=== PATIENT | female | born 1960 | race Caucasian/White ===

== ENCOUNTER → 2018-05-25 10:14 | Outpatient (CLI) | payer MEDICARE, MEDICAID | END | disposition home or self-care (01) | LOC: D.CT 10:14 | DX: K86.9 Disease of pancreas, unspecified (principal) ==

== ENCOUNTER 2018-07-29 08:00 | Outpatient (CLI) | payer MEDICARE, MEDICAID | END 2018-07-29 09:00 | disposition home or self-care (01) | LOC: D.MAMMO 08:00 | DX: Z12.31 Encounter for screening mammogram for malignant neoplasm of breast (principal) ==

== ENCOUNTER 2018-11-23 11:50 | Inpatient (IN) | payer MEDICARE, MEDICAID ==
[2018-11-23 13:01] VITALS: BP 148/52
[2018-11-23] MEDS ORDERED: BELSOMRA15 MG PO (13:07)
[2018-11-23] MEDS ORDERED: LIPITOR80 MG PO (13:08)
[2018-11-23] MEDS ORDERED: TRICOR145 MG PO (13:08)
[2018-11-23] MEDS ORDERED: CYMBALTA60 MG PO (13:09)
[2018-11-23] MEDS ORDERED: AMITRIPTYLINE H50 MG PO (13:09)
[2018-11-23] MEDS ORDERED: TOPROL XL25 MG PO (13:10)
[2018-11-23] MEDS ORDERED: BRILINTA90 MG PO (13:10)
[2018-11-23] MEDS ORDERED: OMEPRAZOLE20 M1 PO (13:11)
[2018-11-23] MEDS ORDERED: LYRICA300 MG PO (13:11)
[2018-11-23] MEDS ORDERED: BAYER CHEWABLE81 MG PO (13:12)
[2018-11-23] MEDS ORDERED: NITROSTAT0.4 MG SL (13:12)
[2018-11-23 13:13] LABS: BASOPHILS 0.5 % (0-2); EOSINOPHILS 3.1 % (0-7); HEMATOCRIT 41.3 % (36.0-48.0); HEMOGLOBIN 13.8 g/dL (12-16); IMMATURE GRANULOCYTES 0.3 % (0-5); LYMPHOCYTES 25.1 % (15-50); MCH 28.9 pg (26.0-34.0); MCHC 33.4 g/dL (31.0-37.0); MCV 86.6 fL (80.0-100.0); MEAN PLATELET VOLUME 11.6 fL (7.4-10.4); MONOCYTES 7.6 % (2-11); NEUTROPHILS 63.4 % (40-80); PLATELET COUNT 244 10x3/uL (130-400); RBC 4.77 10x6/uL (4.00-5.40); RDW 16.5 % (11.5-14.5); WBC 9.8 10x3/uL (4.8-10.8)
[2018-11-23] MEDS ORDERED: TRESIBA FL100 UNIT/1 SC (13:13)
[2018-11-23] MEDS ORDERED: BYDUREON P2 MG/0.65 SC (13:14)
[2018-11-23] MEDS ORDERED: HUMALOG 30100 UNITS/ SC (13:14)
[2018-11-23 13:17] LABS: ALBUMIN 3.3 g/dL (3.4-5.0); ALKALINE PHOSPHATASE 142 U/L (46-116); ALT (SGPT) 23 U/L (10-68); APTT 25.2 SECONDS (22.8-39.4); BILIRUBIN - TOTAL 0.29 mg/dL (0.2-1.3); CALC OSMOLALITY 286 mosm/kg (275-300); CALCIUM 8.8 mg/dL (8.5-10.1); CARBON DIOXIDE 30.9 mmol/L (21.0-32.0); CHLORIDE - SERUM 99 mmol/L (98-107); CREATININE - SERUM 0.6 mg/dL (0.6-1.3); GLUCOSE 238 mg/dL (74-106); INR 0.96 (0.85-1.17); POTASSIUM - SERUM 3.7 mmol/L (3.5-5.1); PROTIME 12.3 SECONDS (11.6-15.0); SODIUM 139 mmol/L (136-145); UREA NITROGEN 16 mg/dL (7-18); eGFR NON AFRICAN AMERICAN > 90 mL/min (90-120)
[2018-11-23 13:29] LABS: CKMB 1.3 U/L (0.0-3.6); CREATINE KINASE 56 UL (21-215); MAGNESIUM - SERUM 1.7 mg/dL (1.8-2.4); PRO BNP 2313 pg/mL (0-125); TROPONIN-I 0.019 ng/mL (0.000-0.060)
[2018-11-23 14:01] VITALS: BP 125/65
[2018-11-23 18:07] VITALS: BP 146/91
[2018-11-23 18:19] VITALS: BP 112/61; BMI 39.6
[2018-11-23 22:28] VITALS: BP 126/57
[2018-11-24 05:02] VITALS: BP 134/60
[2018-11-24 06:47] LABS: BASOPHILS 0.5 % (0-2); EOSINOPHILS 1.9 % (0-7); HEMATOCRIT 40.1 % (36.0-48.0); IMMATURE GRANULOCYTES 0.4 % (0-5); LYMPHOCYTES 15.2 % (15-50); MCH 28.4 pg (26.0-34.0); MCHC 32.4 g/dL (31.0-37.0); MCV 87.6 fL (80.0-100.0); MEAN PLATELET VOLUME 11.6 fL (7.4-10.4); MONOCYTES 7.2 % (2-11); NEUTROPHILS 74.8 % (40-80); PLATELET COUNT 233 10x3/uL (130-400); RBC 4.58 10x6/uL (4.00-5.40); RDW 16.4 % (11.5-14.5); WBC 10.3 10x3/uL (4.8-10.8)
[2018-11-24 07:16] LABS: ALKALINE PHOSPHATASE 133 U/L (46-116); ALT (SGPT) 22 U/L (10-68); BILIRUBIN - TOTAL 0.29 mg/dL (0.2-1.3); CALC OSMOLALITY 287 mosm/kg (275-300); CALCIUM 8.9 mg/dL (8.5-10.1); CARBON DIOXIDE 33.9 mmol/L (21.0-32.0); CHLORIDE - SERUM 99 mmol/L (98-107); CREATININE - SERUM 0.7 mg/dL (0.6-1.3); GLUCOSE 259 mg/dL (74-106); MAGNESIUM - SERUM 1.6 mg/dL (1.8-2.4); PROTEIN - SERUM 7.4 g/dL (6.4-8.2); SODIUM 139 mmol/L (136-145); UREA NITROGEN 14 mg/dL (7-18); eGFR NON AFRICAN AMERICAN > 90 mL/min (90-120)
[2018-11-24 08:45] VITALS: BP 155/63
[2018-11-24 12:45] VITALS: BP 145/54
[2018-11-24 14:15] VITALS: BMI 39.6
[2018-11-24 17:06] VITALS: BP 145/70
[2018-11-24 20:52] VITALS: BP 137/60
[2018-11-25 01:02] VITALS: BP 154/64
[2018-11-25 04:04] LABS: BASOPHILS 0.1 % (0-2); EOSINOPHILS 0 % (0-7); HEMATOCRIT 42.6 % (36.0-48.0); HEMOGLOBIN 14.5 g/dL (12-16); IMMATURE GRANULOCYTES 0.7 % (0-5); LYMPHOCYTES 9.1 % (15-50); MCH 29.2 pg (26.0-34.0); MCV 85.7 fL (80.0-100.0); MEAN PLATELET VOLUME 11.3 fL (7.4-10.4); NEUTROPHILS 87.1 % (40-80); PLATELET COUNT 250 10x3/uL (130-400); RBC 4.97 10x6/uL (4.00-5.40); WBC 9.1 10x3/uL (4.8-10.8)
[2018-11-25 04:42] LABS: ALBUMIN 3.1 g/dL (3.4-5.0); ANION GAP 10.4 mmol/L (8-16); BILIRUBIN - TOTAL 0.46 mg/dL (0.2-1.3); CALCIUM 9.6 mg/dL (8.5-10.1); CARBON DIOXIDE 32.7 mmol/L (21.0-32.0); POTASSIUM - SERUM 4.1 mmol/L (3.5-5.1); PROTEIN - SERUM 8.1 g/dL (6.4-8.2)
[2018-11-25 04:54] VITALS: BP 118/72
[2018-11-25 07:59] VITALS: BP 133/61
[2018-11-25 11:24] VITALS: BP 122/45
--- NOTE | 2018-11-25 14:49 | MORECARE ---
CASE MANAGEMENT DISCHARGE SUMMARY PATIENT: STEPHIE TERRY UNIT: [id number] ADM DATE: 11/23/18 AGE: 58 : 62 SEX: F ROOM/BED: D.2216 AUTHOR: LANRE,DOC PHYSICIAN: REFERRING PHYSICIAN: DAYNA DAVIS MD DATE OF SERVICE: 11/25/18 Discharge Plan Patient Name: STEPHIE TERRY Facility: [facility]:[place] : 1960 Planned Disposition: Home or Self Care Anticipated Discharge Date: Discharge Date: Expected LOS: Initial Reviewer: [email or web address] Initial Review Date: 11/23/2018 Generated: 11/25/18 3:48 pm DCPIA - Discharge Planning Initial Assessment Updated by [email or web address]: Lilli Guerrier on 11/25/18 2:42 pm * Is the patient Alert and Oriented? Yes * How many steps to enter\exit or inside your home? * PCP JEFFREY * [facility] * Preadmission Environment Home with Family * ADLs Independent * Equipment Cane Nebulizer Rolling Walker * List name and contact numbers for known caregivers / representatives who currently or will assist patient after discharge: MIREYA (BROTHER) * Verbal permission to speak to the caregivers and representatives has been obtained from the patient. N/A * Community resources currently utilized None * Additional services required to return to the preadmission environment? No * Can the patient safely return to the preadmission environment? Yes * Has this patient been hospitalized within the prior 30 days at any hospital? No Coverage Notice Reviewer: [id number] Jabari Guerrier Notice Issued Date-Time: 11/25/2018 14:30 Notice Type: IM Discharge Notice Notice Delivered To: Patient Relationship to Patient: Registered Nurse Post Partum Name: Delivery Method: - Viki Days: Prior Verbal Notification: Recipient Understood Notice: Yes Recipient Signature: Yes Med Rec Note Co-signed by Attending: Coverage Notice Comment: Reviewer: [id number] Jabari Guerrier Notice Issued Date-Time: 11/25/2018 14:30 Notice Type: Patient Choice Letter Notice Delivered To: Patient Relationship to Patient: Registered Nurse Post Partum Name: Delivery Method: HAND - Hand Delivered Viki Days: Prior Verbal Notification: Recipient Understood Notice: Yes Recipient Signature: Yes Med Rec Note Co-signed by Attending: Coverage Notice Comment: DEX IVY Patient Name: STEPHIE TERRY Page [id number] at 1449 All edits/amendments must be made on the electronic document DICTATION DATE: 11/25/181447 SHIP PILOT: YAS 11/25/181447 RPT#: [id number] DC DATE: STATUS: ADM IN [facility] [address] [place] [address] END OF REPORT
--- NOTE | 2018-11-25 14:58 | MORECARE ---
CASE MANAGEMENT DISCHARGE SUMMARY PATIENT: STEPHIE TERRY UNIT: [id number] ADM DATE: 11/23/18 AGE: 58 : 62 SEX: F ROOM/BED: D.2216 AUTHOR: LANRE,DOC PHYSICIAN: REFERRING PHYSICIAN: DAYNA DAVIS MD DATE OF SERVICE: 11/25/18 Discharge Plan Patient Name: STEPHIE TERRY Facility: [facility]:[place] : 1960 Planned Disposition: Home or Self Care Anticipated Discharge Date: Discharge Date: Expected LOS: Initial Reviewer: [email or web address] Initial Review Date: 11/23/2018 Generated: 11/25/18 3:57 pm Comments DCP- Discharge Planning Updated by [email or web address]: Lilli Guerrier on 11/25/18 1:[address] Patient Name: STEPHIE TERRY Admission Status: ER Accout number: [id number] Admission Date: 11-23-2018 : 1960 Admission Diagnosis: Attending: DAYNA DAVIS Current LOS: 2 Anticipated DC Date: Planned Disposition: Home or Self Care Primary Insurance: [facility] MEDICARE SOLUTIONS Discharge Planning Comments: CM met with patient to complete initial dc planning assessment. CM educated patient on the CM role and verbal consent given by patient to complete assessment. Patient lives at home with his brother where she is independent with her care. At discharge patient plans to return home and feels this is a safe discharge. Mireya (brother) will be her driver guide home. CM discussed availability of home health, rehab services, and medical equipment. Patient has a cane, walker, and nebulizer ([facility]) She qualifies for a portable O2, will get from [facility]. Patient denied any other known discharge needs at this time. IMM served and explained. CM will continue to follow and will assist as needed with dc plans/needs. Director Nursery School: Lilli Guerrier DCPIA - Discharge Planning Initial Assessment Updated by [email or web address]: Lilli Guerrier on 11/25/18 2:42 pm * Is the patient Alert and Oriented? Yes * How many steps to enter\exit or inside your home? * PCP JEFFREY * [facility] * Preadmission Environment Home with Family * ADLs Independent * Equipment Cane Nebulizer Rolling Walker * List name and contact numbers for known caregivers / representatives who currently or will assist patient after discharge: MIREYA (BROTHER) * Verbal permission to speak to the caregivers and representatives has been obtained from the patient. N/A * Community resources currently utilized None * Additional services required to return to the preadmission environment? No * Can the patient safely return to the preadmission environment? Yes * Has this patient been hospitalized within the prior 30 days at any hospital? No External Providers External Provider: Kelly Joseph Contact Date: Service Request Date: Service Type: Resolution: Reviewer: Comments: Coverage Notice Reviewer: [id number] Jabari Guerrier Notice Issued Date-Time: 11/25/2018 14:30 Notice Type: IM Discharge Notice Notice Delivered To: Patient Relationship to Patient: Carton Stapler Name: Delivery Method: - Viki Days: Prior Verbal Notification: Recipient Understood Notice: Yes Recipient Signature: Yes Med Rec Note Co-signed by Attending: Coverage Notice Comment: Reviewer: [id number] Guerrier Notice Issued Date-Time: 11/25/2018 14:30 Notice Type: Patient Choice Letter Notice Delivered To: Patient Relationship to Patient: Carton Stapler Name: Delivery Method: HAND - Hand Delivered Viki Days: Prior Verbal Notification: Recipient Understood Notice: Yes Recipient Signature: Yes Med Rec Note Co-signed by Attending: Coverage Notice Comment: DEX IVY Last DP export: 11/25/18 1:49 p Patient Name: STEPHIE TERRY Page [id number] at 1458 All edits/amendments must be made on the electronic document DICTATION DATE: 11/25/181456 TOE POUNDER: YAS 11/25/181456 RPT#: [id number] DC DATE: STATUS: ADM IN [facility] [address] [place] [address] END OF REPORT
--- NOTE | 2018-11-25 15:07 | MORECARE ---
CASE MANAGEMENT DISCHARGE SUMMARY PATIENT: STEPHIE TERRY UNIT: [id number] ADM DATE: 11/23/18 AGE: 58 : 62 SEX: F ROOM/BED: D.2216 AUTHOR: ZEYAD DE DIOS PHYSICIAN: REFERRING PHYSICIAN: DAYNA DAVIS MD DATE OF SERVICE: 11/25/18 Discharge Plan Patient Name: STEPHIE TERRY Facility: [facility]:[place] : 1960 Planned Disposition: Home or Self Care Anticipated Discharge Date: Discharge Date: Expected LOS: Initial Reviewer: [email or web address] Initial Review Date: 11/23/2018 Generated: 11/25/18 4:06 pm Comments DCP- Discharge Planning Updated by [id number]: Lilli Guerrier on 11/25/18 2:[address] ORDER AND CLINICAL INFORMARTION SENT TO [facility] [place], I SPOKE WITH [facility]RA SHE WILL DELIVER PORTABLE TO THE HOSPITAL AND WILL SET UP HOME O2 WHEN THE PATIENT IS DISCHARGED. I ANTICIPATE THE PATIENT TO BE DISCHARGED TOMORROW DCP- Discharge Planning Updated by [email or web address]: Lilli Guerrier on 11/25/18 1:[address] Patient Name: STEPHIE TERRY Admission Status: ER Accout number: [id number] Admission Date: 11-23-2018 : 1960 Admission Diagnosis: Attending: DAYNA DAVIS Current LOS: 2 Anticipated DC Date: Planned Disposition: Home or Self Care Primary Insurance: [facility] MEDICARE SOLUTIONS Discharge Planning Comments: CM met with patient to complete initial dc planning assessment. CM educated patient on the CM role and verbal consent given by patient to complete assessment. Patient lives at home with his brother where she is independent with her care. At discharge patient plans to return home and feels this is a safe discharge. Mireya (brother) will be her carrier driver home. CM discussed availability of home health, rehab services, and medical equipment. Patient has a cane, walker, and nebulizer ([facility]) She qualifies for a portable O2, will get from [facility]. Patient denied any other known discharge needs at this time. IMM served and explained. CM will continue to follow and will assist as needed with dc plans/needs. Stave And Bolt Equalizer: Lilli Guerrier DCPIA - Discharge Planning Initial Assessment Updated by [email or web address]: Lilli Guerrier on 11/25/18 2:42 pm * Is the patient Alert and Oriented? Yes * How many steps to enter\exit or inside your home? * PCP JEFFREY * [facility] * Preadmission Environment Home with Family * ADLs Independent * Equipment Cane Nebulizer Rolling Walker * List name and contact numbers for known caregivers / representatives who currently or will assist patient after discharge: MIREYA (BROTHER) * Verbal permission to speak to the caregivers and representatives has been obtained from the patient. N/A * Community resources currently utilized None * Additional services required to return to the preadmission environment? No * Can the patient safely return to the preadmission environment? Yes * Has this patient been hospitalized within the prior 30 days at any hospital? No Coverage Notice Reviewer: [id number] Jabari Guerrier Notice Issued Date-Time: 11/25/2018 14:30 Notice Type: IM Discharge Notice Notice Delivered To: Patient Relationship to Patient: Sales Route Driver Helper Name: Delivery Method: - Viki Days: Prior Verbal Notification: Recipient Understood Notice: Yes Recipient Signature: Yes Med Rec Note Co-signed by Attending: Coverage Notice Comment: Reviewer: [id number] Jabari Guerrier Notice Issued Date-Time: 11/25/2018 14:30 Notice Type: Patient Choice Letter Notice Delivered To: Patient Relationship to Patient: Sales Route Driver Helper Name: Delivery Method: HAND - Hand Delivered Viki Days: Prior Verbal Notification: Recipient Understood Notice: Yes Recipient Signature: Yes Med Rec Note Co-signed by Attending: Coverage Notice Comment: DEX Mejia DP export: 11/25/18 1:58 p Patient Name: STEPHIE TERRY Page [id number] at 1507 All edits/amendments must be made on the electronic document DICTATION DATE: 11/25/18 1506 ELECTION SUPERVISOR: YAS 11/25/18 1506 RPT#: [id number] DC DATE: STATUS: ADM IN [facility] [address] [place] [address] END OF REPORT
--- NOTE | 2018-11-25 16:09 | MORECARE ---
CASE MANAGEMENT DISCHARGE SUMMARY PATIENT: STEPHIE TERRY UNIT: [id number] ADM DATE: 11/23/18 AGE: 58 : 62 SEX: F ROOM/BED: D.2216 AUTHOR: LANREDOC PHYSICIAN: REFERRING PHYSICIAN: DAYNA DAVIS MD DATE OF SERVICE: 11/25/18 Discharge Plan Patient Name: STEPHIE TERRY Facility: [facility]:[place] : 1960 Planned Disposition: Home or Self Care Anticipated Discharge Date: Discharge Date: Expected LOS: Initial Reviewer: [email or web address] Initial Review Date: 11/23/2018 Generated: 11/25/18 5:09 pm Comments DCP- Discharge Planning Updated by [email or web address]: Lilli Guerrier on 11/25/18 3:[address] [facility] WITH [facility] HAS DELIVERED THE PORTABLE O2 TO THE PATIENT'S ROOM & WILL DELIVER THE HOME O2 TO THE HOUSE WHEN DISCHARGED. [facility] ENGINEER STEAM HERE ALSO SPEAKING TO THE PATIENT DCP- Discharge Planning Updated by [id number]: Lilli Guerrier on 11/25/18 2:[address] ORDER AND CLINICAL INFORMARTION SENT TO [facility], I SPOKE WITH DEDRA SHE WILL DELIVER PORTABLE TO THE HOSPITAL AND WILL SET UP HOME O2 WHEN THE PATIENT IS DISCHARGED. I ANTICIPATE THE PATIENT TO BE DISCHARGED TOMORROW DCP- Discharge Planning Updated by : Lilli Guerrier on 11/25/18 1:[address] Patient Name: STEPHIE TERRY Admission Status: ER Accout number: [id number] Admission Date: 11-23-2018 : 1960 Admission Diagnosis: Attending: DAYNA DAVIS Current LOS: 2 Anticipated DC Date: Planned Disposition: Home or Self Care Primary Insurance: [facility] MEDICARE SOLUTIONS Discharge Planning Comments: CM met with patient to complete initial dc planning assessment. CM educated patient on the CM role and verbal consent given by patient to complete assessment. Patient lives at home with his brother where she is independent with her care. At discharge patient plans to return home and feels this is a safe discharge. Mireya (brother) will be her courier driver home. CM discussed availability of home health, rehab services, and medical equipment. Patient has a cane, walker, and nebulizer ([facility]) She qualifies for a portable O2, will get from [facility]. Patient denied any other known discharge needs at this time. IMM served and explained. CM will continue to follow and will assist as needed with dc plans/needs. Bilingual Loan Processor: Lilli Guerrier DCPIA - Discharge Planning Initial Assessment Updated by [email or web address]: Lilli Guerrier on 11/25/18 2:42 pm * Is the patient Alert and Oriented? Yes * How many steps to enter\exit or inside your home? * PCP JEFFREY * [facility] * Preadmission Environment Home with Family * ADLs Independent * Equipment Cane Nebulizer Rolling Walker * List name and contact numbers for known caregivers / representatives who currently or will assist patient after discharge: MIREYA (BROTHER) * Verbal permission to speak to the caregivers and representatives has been obtained from the patient. N/A * Community resources currently utilized None * Additional services required to return to the preadmission environment? No * Can the patient safely return to the preadmission environment? Yes * Has this patient been hospitalized within the prior 30 days at any hospital? No Coverage Notice Reviewer: [email or web address] Jabari Guerrier Notice Issued Date-Time: 11/25/2018 14:30 Notice Type: IM Discharge Notice Notice Delivered To: Patient Relationship to Patient: Pastry Chef Name: Delivery Method: - Viki Days: Prior Verbal Notification: Recipient Understood Notice: Yes Recipient Signature: Yes Med Rec Note Co-signed by Attending: Coverage Notice Comment: Reviewer: [id number] Jabari Guerrier Notice Issued Date-Time: 11/25/2018 14:30 Notice Type: Patient Choice Letter Notice Delivered To: Patient Relationship to Patient: Pastry Chef Name: Delivery Method: HAND - Hand Delivered Viki Days: Prior Verbal Notification: Recipient Understood Notice: Yes Recipient Signature: Yes Med Rec Note Co-signed by Attending: Coverage Notice Comment: DEX IVY Last DP export: 11/25/18 2:07 p Patient Name: STEPHIE TERRY Page [id number] at 1609 All edits/amendments must be made on the electronic document DICTATION DATE: 11/25/181607 BAGGAGE CHECKER: YAS 11/25/181607 RPT#: [id number] DC DATE: STATUS: ADM IN [facility] [address] [place] [address] END OF REPORT
[2018-11-25 16:17] VITALS: BP 124/48
[2018-11-25 20:00] VITALS: BP 116/43
[2018-11-25] MEDS ORDERED: LANTUS INSULIN10 ML SC (23:27)
[2018-11-26] VITALS: BP 119/51
[2018-11-26 03:00] VITALS: BP 117/68
[2018-11-26 06:13] LABS: BASOPHILS 0.1 % (0-2); EOSINOPHILS 0.1 % (0-7); HEMATOCRIT 40.2 % (36.0-48.0); HEMOGLOBIN 13.5 g/dL (12-16); IMMATURE GRANULOCYTES 0.5 % (0-5); LYMPHOCYTES 8.1 % (15-50); MCH 28.8 pg (26.0-34.0); MCHC 33.6 g/dL (31.0-37.0); MCV 85.9 fL (80.0-100.0); MEAN PLATELET VOLUME 11.6 fL (7.4-10.4); MONOCYTES 5.1 % (2-11); NEUTROPHILS 86.1 % (40-80); PLATELET COUNT 260 10x3/uL (130-400); RBC 4.68 10x6/uL (4.00-5.40); RDW 16.1 % (11.5-14.5)
[2018-11-26 06:16] LABS: ALKALINE PHOSPHATASE 133 U/L (46-116); ALT (SGPT) 20 U/L (10-68); BILIRUBIN - TOTAL 0.23 mg/dL (0.2-1.3); CALCIUM 9.4 mg/dL (8.5-10.1); CARBON DIOXIDE 30.3 mmol/L (21.0-32.0); CHLORIDE - SERUM 99 mmol/L (98-107); CREATININE - SERUM 0.8 mg/dL (0.6-1.3); POTASSIUM - SERUM 4.3 mmol/L (3.5-5.1); PROTEIN - SERUM 7.4 g/dL (6.4-8.2); SODIUM 137 mmol/L (136-145); UREA NITROGEN 25 mg/dL (7-18); eGFR NON AFRICAN AMERICAN 78 mL/min (90-120)
[2018-11-26 06:19] LABS: CALC OSMOLALITY 292 mosm/kg (275-300); GLUCOSE 369 mg/dL (74-106)
[2018-11-26 06:21] LABS: WBC 13.8 10x3/uL (4.8-10.8)
[2018-11-26 09:50] VITALS: BP 129/65
[2018-11-26] MEDS ORDERED: TESSALON PERLE100 MG PO (10:13)
[2018-11-26] MEDS ORDERED: MUCINEX600 MG PO (10:13)
[2018-11-26] MEDS ORDERED: Nicoderm [PBKC] TRANSDERM (10:14)
[2018-11-26] MEDS ORDERED: LEVAQUIN750 MG PO (10:14)
--- NOTE | 2018-11-26 13:29 | MORECARE ---
CASE MANAGEMENT DISCHARGE SUMMARY PATIENT: STEPHIE TERRY UNIT: [id number] ADM DATE: 11/23/18 AGE: 58 : 62 SEX: F ROOM/BED: D.2216 AUTHOR: LANRE,DOC PHYSICIAN: REFERRING PHYSICIAN: DAYNA DAVIS MD DATE OF SERVICE: 11/26/18 Discharge Plan Patient Name: STEPHIE TERRY Facility: [facility]:[place] : 1960 Planned Disposition: Home or Self Care Anticipated Discharge Date: 11/26/18 Discharge Date: Expected LOS: 3 Initial Reviewer: [id number] Initial Review Date: 11/23/2018 Generated: 11/26/18 2:29 pm Comments DCP- Discharge Planning Updated by [email or web address]: Jyoti Cano on 11/26/18 12:[address] late entry 1000 CM VSITED WITH THE PATIENT AT THE BEDSIDE. PORTABLE OXYGEN IN THE CHAIR. PATIENT DENIED ANY NEEDS. DISCHARGE IMM HAD BEEN SIGNED. PLAN DISCHARGE FOR TODAY. DCP- Discharge Planning Updated by [email or web address]: Lilli Guerrier on 11/25/18 3:[address] [facility] WITH [facility] HAS DELIVERED THE PORTABLE O2 TO THE PATIENT'S ROOM & WILL DELIVER THE HOME O2 TO THE HOUSE WHEN DISCHARGED. [facility] SLEEVE SEWER HERE ALSO SPEAKING TO THE PATIENT DCP- Discharge Planning Updated by [id number]: Lilli Guerrier on 11/25/18 2:[address] ORDER AND CLINICAL INFORMARTION SENT TO [facility], I SPOKE WITH DEDRA SHE WILL DELIVER PORTABLE TO THE HOSPITAL AND WILL SET UP HOME O2 WHEN THE PATIENT IS DISCHARGED. I ANTICIPATE THE PATIENT TO BE DISCHARGED TOMORROW DCP- Discharge Planning Updated by [id number]: Lilli Guerrier on 11/25/18 1:[address] Patient Name: STEPHIE TERRY Admission Status: ER Accout number: [id number] Admission Date: 11-23-2018 : 1960 Admission Diagnosis: Attending: DAYNA DAVIS Current LOS: 2 Anticipated DC Date: Planned Disposition: Home or Self Care Primary Insurance: [facility] MEDICARE SOLUTIONS Discharge Planning Comments: CM met with patient to complete initial dc planning assessment. CM educated patient on the CM role and verbal consent given by patient to complete assessment. Patient lives at home with his brother where she is independent with her care. At discharge patient plans to return home and feels this is a safe discharge. Mireya (brother) will be her auto haulaway driver home. CM discussed availability of home health, rehab services, and medical equipment. Patient has a cane, walker, and nebulizer ([facility]) She qualifies for a portable O2, will get from [facility]. Patient denied any other known discharge needs at this time. IMM served and explained. CM will continue to follow and will assist as needed with dc plans/needs. Interlocking Pavement Installer: Lilli Guerrier DCPIA - Discharge Planning Initial Assessment Updated by [email or web address]: Lilli Guerrier on 11/25/18 2:42 pm * Is the patient Alert and Oriented? Yes * How many steps to enter\exit or inside your home? * PCP JEFFREY * [facility] * Preadmission Environment Home with Family * ADLs Independent * Equipment Cane Nebulizer Rolling Walker * List name and contact numbers for known caregivers / representatives who currently or will assist patient after discharge: MIREYA (BROTHER) * Verbal permission to speak to the caregivers and representatives has been obtained from the patient. N/A * Community resources currently utilized None * Additional services required to return to the preadmission environment? No * Can the patient safely return to the preadmission environment? Yes * Has this patient been hospitalized within the prior 30 days at any hospital? No Coverage Notice Reviewer: [id number] Jabari Guerrier Notice Issued Date-Time: 11/25/2018 14:30 Notice Type: IM Discharge Notice Notice Delivered To: Patient Relationship to Patient: Polish Maker Name: Delivery Method: - Viki Days: Prior Verbal Notification: Recipient Understood Notice: Yes Recipient Signature: Yes Med Rec Note Co-signed by Attending: Coverage Notice Comment: Reviewer: [id number] Jabari Guerrier Notice Issued Date-Time: 11/25/2018 14:30 Notice Type: Patient Choice Letter Notice Delivered To: Patient Relationship to Patient: Polish Maker Name: Delivery Method: HAND - Hand Delivered Viki Days: Prior Verbal Notification: Recipient Understood Notice: Yes Recipient Signature: Yes Med Rec Note Co-signed by Attending: Coverage Notice Comment: DEX IVY Last DP export: 11/25/18 3:09 p Patient Name: STEPHIE TERRY Page [phone] at 1329 All edits/amendments must be made on the electronic document DICTATION DATE: 11/26/181328 TARIFF SUPERVISOR: YAS 11/26/181328 RPT#: [id number] DC DATE: STATUS: ADM IN [facility] [address] [place] [address] END OF REPORT
== END 2018-11-26 13:15 | disposition home or self-care (01) | DRG 191 ==
LOC: D.ER 11:50 → D.EDHOLD 13:31 → D.MS 14:57
PROVIDERS: Emergency Medicine; Family Medicine; ADMIT Internal Medicine Nephrology
DX: J44.1 Chronic obstructive pulmonary disease with (acute) exacerbation (principal); F17.213 Nicotine dependence, cigarettes, with withdrawal; J20.9 Acute bronchitis, unspecified; J45.909 Unspecified asthma, uncomplicated; I10 Essential (primary) hypertension; I25.10 Atherosclerotic heart disease of native coronary artery without angina pectoris; E11.69 Type 2 diabetes mellitus with other specified complication